=== PATIENT | female | born 1950 | race Caucasian/White ===

== ENCOUNTER 2016-11-19 16:16 | Emergency (ER) | payer MEDICARE ==
[~2016-11-19] VITALS: Ht 160 cm; Wt 67.0 kg
[2016-11-19 16:18] VITALS: BP 144/73; PULSE 96; RESP 16; TEMP 98.3; O2SAT 100
--- NOTE | 2016-11-19 16:37 | PD ---
Physical Exam Time Seen by Provider: 16:34 Narrative 66yo F c/o waking up w/ severe L buttock pain that radiates to left foot. Denies injury. Denies fever, vomiting. Hx of breast cancer w/ R mastectomy. Ambulatory in triage w/ NL gait. Patient stable. Patient seen in triage. Awaiting bed placement. Data Data Last Documented VS Vital Signs Date Time Temp Pulse Resp B/P Pulse Ox O2 Delivery O2 Flow Rate FiO2 11/19/16 16:18 98.3 96 16 144/73 100 MDM Supervised Visit with JOSELUIS: Sarah Vidal Nov 19, 2016 16:37
--- NOTE | 2016-11-19 16:40 | PD ---
HPI . left leg pain radiating down to foot Chief Complaint: Back/ Neck Pain or Injury Time Seen by Provider: 16:40 Travel History International Travel<30 days: No Contact w/Intl Traveler<30days: No Traveled to known affect area: No History of Present Illness HPI 66-year-old female with history of breast cancer here with complaints of left leg pain starting in her buttocks radiating down to her left foot. She tells me that she's had a history of neck and back pain, but this pain has been a little bit more prominent than usual. She says that ibuprofen is helping to bring the pain down to a 6/10 and she is able to tolerate it. She admits to pain that is shooting down the posterior aspect of her leg into her foot. It seems to be a little worse with walking and standing. She denies any back pain. She denies any bowel or bladder dysfunction. She has no saddle anesthesia. She denies any swelling of her lower extremities. She denies any shortness of breath. She has no other complaints per she is accompanied by her . 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 PFSH Past Medical History ?: Not Social History Tobacco Use: No Allergies-Medications (Allergen,Severity, Reaction): Coded Allergies: No Known Allergies (Unverified , 11/19/16) Reported Meds & Prescriptions Reported Meds & Active Scripts Active Ibuprofen 800 Mg Tab 800 Mg PO TID Flexeril (Cyclobenzaprine HCl) 5 Mg Tab 5 Mg PO TID Review of Systems General / Constitutional: No: Fever Eyes: No: Visual changes HENT: No: Headaches Cardiovascular: No: Chest Pain or Discomfort Respiratory: No: Shortness of Breath Gastrointestinal: No: Abdominal Pain Genitourinary: No: Dysuria Musculoskeletal: Positive: Pain (left leg pain) Skin: No Rash Neurologic: No: Weakness Psychiatric: No: Depression Endocrine: No: Polydipsia Hematologic/Lymphatic: No: Easy Bruising Physical Exam Narrative GENERAL: AAO x 3, no acute distress, Well-nourished, well-developed patient. SKIN: Warm and dry. No visible rashes or bruising. HEAD: Normocephalic and atraumatic. EYES: No scleral icterus. No injection or drainage. ENT: No nasal drainage noted. Mucous membranes pink. Airway patent. NECK: Supple, trachea midline. No JVD. CARDIOVASCULAR: Regular rate and rhythm without murmurs, gallops, or rubs. RESPIRATORY: Breath sounds equal bilaterally. No accessory muscle use. No rhonchi or rales. GASTROINTESTINAL: Abdomen soft, non-tender, nondistended. EXTREMITIES: No cyanosis or edema. No edema of the bilateral lower extremities. Both legs are symmetrical. Pedal pulses are intact bilaterally. There is no temperature difference. Pain is in elicited with palpation of the buttocks and shoots down to the lower extremity on the left. Straight leg raise is a minimally positive. She is ambulatory. BACK: Nontender without obvious deformity. No CVA tenderness. PSYCH: AAO x 3, normal affect. Data Data Last Documented VS Vital Signs Date Time Temp Pulse Resp B/P Pulse Ox O2 Delivery O2 Flow Rate FiO2 11/19/16 16:18 98.3 96 16 144/73 100 MDM Medical Decision Making Medical Screen Exam Complete: Yes Emergency Medical Condition: Yes Medical Record Reviewed: Yes Differential Diagnosis sciatica, lumbago, less likely cauda equina Narrative Course 66-year-old female with history of breast cancer here with complaints of left leg pain starting in her buttocks radiating down to her left foot. She tells me that she's had a history of neck and back pain, but this pain has been a little bit more prominent than usual. She says that ibuprofen is helping to bring the pain down to a 6/10 and she is able to tolerate it. She admits to pain that is shooting down the posterior aspect of her leg into her foot. It seems to be a little worse with walking and standing. She denies any back pain. She denies any bowel or bladder dysfunction. She has no saddle anesthesia. She denies any swelling of her lower extremities. She denies any shortness of breath. She has no other complaints per she is accompanied by her . 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 Patient seen and examined. She appears to have sciatic on examination. My index of suspicion for DVT or cauda equina is very low. Her bilateral lower extremities are symmetrical, pedal pulses are intact, there is no temperature difference. They're both soft. She does not have any bowel or bladder dysfunction. She has no saddle anesthesia. I've explained this to her family member who is at bedside. I discussed the process of sciatica. I recommend a course of muscle relaxers and anti-inflammatories. I explained to her that this is not a permanent fix. I discussed that often times physical therapy is necessary and she may need additional workup/imaging by pcp. If pain persists 7-10 days, patient will need to follow-up with her primary care provider. SE of muscle relaxers discussed with patient. Patient verbalized understanding of instructions, questions were answered, and thanked me for their care. I advised them if their condition worsens, please return to the nearest emergency room for further care. Diagnosis Primary Impression: Sciatica Qualified Code: M54.32 - Sciatica of left side Patient Instructions: General Instructions Additional Instructions: Please return to emergency department if your symptoms return or worsen. Follow up with your primary care provider. Take medications as prescribed. Your pain persists past 7-10 days, please follow with your primary care provider. Med/Other Pt SpecificInfo: Prescription(s) given Scripts Ibuprofen 800 Mg [id number] Mg PO TID #21 TAB Prov:Bart Greene MD 11/19/16 Cyclobenzaprine (Flexeril)5 Mg Tab5 Mg PO TID #21 TAB Prov:Bart Greene MD 11/19/16 Disposition: 01 DISCHARGE HOME Condition: Stable Patito Chaney Nov 19, 2016 16:40
[2016-11-19] MEDS ORDERED: IBUP800T23 PO (16:50)
[2016-11-19] MEDS ORDERED: CYCL5TAB PO (16:50)
== END 2016-11-19 17:01 | disposition home or self-care (01) ==
LOC: NEPK 16:16
DX: M54.32 Sciatica, left side (principal); Z85.3 Personal history of malignant neoplasm of breast
CPT/HCPCS: 99283